=== PATIENT | female | born 1995 | race Native Hawaiian/Other Pacific Islander ===

== ENCOUNTER 2020-07-26 09:48 | Outpatient (CLI) | payer OTHER | END 2020-07-26 09:49 | disposition home or self-care (01) | LOC: DI 09:48 | PROVIDERS: ATTEND Obstetrics & Gynecology | DX: O99.891 Other specified diseases and conditions complicating pregnancy (principal); I51.7 Cardiomegaly; Z98.890 Other specified postprocedural states; Z3A.16 16 weeks gestation of pregnancy | CPT/HCPCS: 93306 ==